=== PATIENT | male | born 2000 | race Caucasian/White ===

== ENCOUNTER 2018-01-18 15:37 | Emergency (ER) | payer MEDICAID ==
[~2018-01-18] VITALS: Ht 170.2 cm; Wt 68.0 kg
[2018-01-18 18:30] VITALS: BP 140/80
== END 2018-01-18 18:53 | disposition home or self-care (01) ==
LOC: ER 15:37
DX: J02.9 Acute pharyngitis, unspecified (principal); F17.210 Nicotine dependence, cigarettes, uncomplicated